=== PATIENT | male | born 1975 | race Caucasian/White ===

== ENCOUNTER 2021-09-20 15:02 | Inpatient (IN) | payer OTHER ==
[~2021-09-20] VITALS: Ht 185.4 cm; Wt 145.2 kg
[~2021-09-20 15:02] MED LIST: BENTYL10 MG PO; FLORANEX TABLE1 EACH PO; FLORASTOR250 MG PO; HABITROL14 MG TD; K-DUR20 MEQ PO; LASIX20 MG PO; LEVAQUIN750 MG PO; MUCINEX 600MG600 MG PO; PREDNISONE 20MG20 MG PO; VENTOLIN HFA IN18 GM INH; ZOFRAN8 MG PO
[2021-09-20 16:33] LABS: BASOPHIL 0.7 % (0-2); EOSINOPHIL 4.5 % (0-5); HGB 10.8 g/dl (13.2-18.0); LYMPHOCYTE 24.6 % (15-48); MCHC 31.8 g/dL (32.0-36.0); MCV 97.7 fL (78.0-100.0); MONOCYTE 11.3 % (0-12); MPV 10.9 fL (6.0-9.5); NEUTROPHIL 58.7 % (41-80); NRBC 0; PLT 109 K/uL (150-400); RBC 3.48 M/uL (4.70-6.00); RDW 17.6 % (11.5-14.0); WBC 5.6 K/uL (4.0-10.5)
[2021-09-20 16:50] LABS: ALBUMIN 2.9 g/dL (3.4-5.0); BILIRUBIN - TOTAL 0.6 mg/dL (0.2-1.0); BUN/CREAT RATIO (CALC) 15.7 RATIO; CREATININE 0.89 mg/dL (0.67-1.17); GLOBULIN (CALCULATION) 5.9 g/dL; POTASSIUM 4.1 mmol/L (3.5-5.1); TOTAL PROTEIN 8.8 g/dL (6.4-8.2)
[2021-09-20 17:06] LABS: BILIRUBIN NEGATIVE (NEGATIVE); BLOOD NEGATIVE Ery/uL (NEGATIVE); CLARITY CLEAR (CLEAR); COLOR YELLOW (YELLOW); GLUCOSE (U) NORMAL (NORMAL); LEUKOCYTES NEGATIVE Leu/uL (NEGATIVE); NITRITE NEGATIVE (NEGATIVE); PROTEIN NEGATIVE (NEGATIVE); UROBILINOGEN 0.2 mg/dL (0.2-1.0)
[2021-09-20 17:13] LABS: URINARY RBC RARE
[2021-09-20 17:14] LABS: SQUAMOUS EPITHELIAL CELLS RARE
[2021-09-20 20:15] LABS: CORONAVIRUS 2019 SARS-COV-2 NEGATIVE (NEGATIVE); INFLUENZA A NAA NEGATIVE (NEGATIVE)
--- NOTE | 2021-09-21 05:44 | NUR ---
NO HOME MEDS
[2021-09-21 06:33] LABS: BASOPHIL 0.7 % (0-2); EOSINOPHIL 4.3 % (0-5); HCT 33.7 % (42.0-52.0); HGB 10.8 g/dl (13.2-18.0); LYMPHOCYTE 27.9 % (15-48); MCV 96.8 fL (78.0-100.0); MONOCYTE 11.8 % (0-12); MPV 10.6 fL (6.0-9.5); NEUTROPHIL 54.9 % (41-80); NRBC 0; PLT 106 K/uL (150-400); RBC 3.48 M/uL (4.70-6.00); RDW 17.7 % (11.5-14.0); WBC 5.4 K/uL (4.0-10.5)
[2021-09-21 06:55] LABS: IRON % SATURATION 11.4 %SAT (20-50)
[2021-09-21 07:03] LABS: CKMB 2.3 ng/mL (0.0-3.6)
[2021-09-21 07:22] LABS: ALBUMIN 2.7 g/dL (3.4-5.0); BILIRUBIN - TOTAL 0.6 mg/dL (0.2-1.0); BUN/CREAT RATIO (CALC) 16.3 RATIO; CREATININE 0.98 mg/dL (0.67-1.17); FOLIC ACID (SERUM) 4.6 ng/mL (8.6-58.9); FT4 (FREE T4) 1.3 ng/dL (0.76-1.46); GLOBULIN (CALCULATION) 5.8 g/dL; MAGNESIUM 1.7 mg/dL (1.8-2.4); PHOSPHORUS 4.1 mg/dL (2.6-4.7); POTASSIUM 3.9 mmol/L (3.5-5.1); TOTAL PROTEIN 8.5 g/dL (6.4-8.2)
--- NOTE | 2021-09-21 15:13 | NUR ---
09/21/21 Pt is currently on Bi-PAP. A social and discharge planning assessment will be completed when patient is able to participate.
--- NOTE | 2021-09-21 15:15 | NUR ---
1100 NOTIFED RADHA GHANSHYAM THAT THE PATIENT IS VERY HARD TO AROUSE AND O2 SATS ARE LOW, REFUSED TO KEEP THE O2 IN PLACE. PATIENT WHEN AWAKE IS ABLE TO FOLLOW COMMANDS BUT FALLS BACK TO SLEEP AND IS SNORING. VITAL SIGNS ARE STABLE EXCEPT THE 02 SAT WHEN OFF THE OXYGEN. OXYGEN IS PLACED BACK ON THE PATIENT AT 3L NC. 1200 NEW ORDERS TO TRANSFER TO ICU AND TO BE PLACED ON THE BIPAP. 1250 REPORT WAS GIVEN TO WAYLON MEJIA RN 1300 TRNSFERRED OVER TO ICU VIA CHAIR WITH STAFF. CONDITION WAS STABLE BUT THE PATIENT IS VERY DROWSY AND DOES WAKE UP ONLY LONG ENOUGH TO FOLLOW SIMPLE COMMANDS BUT GOES RIGHT BACK TO SLEEP.
--- NOTE | 2021-09-21 18:31 | NUR ---
AFTER ARRIVAL TO ICU MYSELF, DR PENA, AND MARIA M REVELES, TRIED TO GET PATIENT TO WEAR BIPAP HE WOULD PUT ON HIS FACE THEN FIGHT WITH US AND RIP THE BIPAP MASK OFF. REFUSES TO WEAR, DR PENA AND MYSELF DISCUSSED THE IMPORTANCE OF THE BIPAP, BUT PT STILL REFUSED TO WEAR. "HE STATED WE JUST NEED TO TAKE CARE OF THE FLUID BUILD UP AND HE WOULD BE FINE" , I EXPAINED TO HIM THAT HIS CO2 LEVEL WAS INCREASEING AND THAT THIS TIME JUST GETTING THE FLUID OFF MIGHT NOT WORK.AND THAT IF HIS CO2 LEVELS CONTINUE TO RISE WE WOULD PROBABLY HAVE TO INTUBATE.
--- NOTE | 2021-09-21 22:27 | NUR ---
Patient stated that he wished to go outside to smoke. This RN spoke to bdc manager on duty regarding hospital policy. Application Counselor on duty stated that patient would have to have all monitoring removed and any IVs removed. This RN educated patient of this policy and educated patient that he could not smoke on the premises. This RN also educated that patient that he his illness made it extremely risk to leave the ICU/TCU, because he could lose consciousness and the staff would not know and would not be able to assist him if he left. Patient verbalized understanding. This RN contacted the ASSISTANT TODDLER TEACHER to obtain an order for a nicotine patch.
--- NOTE | 2021-09-22 03:03 | NUR ---
Patient continues to refuse bipap/cpap. Patient's SpO2 drops to low 70's when sleeping. When this happens the patient is difficult to arouse, and will strike out at the nurse. This nurse educated the patient that declining to wear the bipap/cpap could jeopardize his health and safety and could result in mechanical intubation or cardiac arrest. The patient verbalized understanding, but continues to decline bipap/cpap.
[2021-09-22 06:00] LABS: BASOPHIL 0.7 % (0-2); EOSINOPHIL 4.2 % (0-5); HCT 34.7 % (42.0-52.0); HGB 10.7 g/dl (13.2-18.0); LYMPHOCYTE 28.4 % (15-48); MCH 30.9 pg (25.0-31.0); MCHC 30.8 g/dL (32.0-36.0); MCV 100.3 fL (78.0-100.0); MONOCYTE 11.2 % (0-12); MPV 10.4 fL (6.0-9.5); NEUTROPHIL 55.3 % (41-80); NRBC 0; PLT 104 K/uL (150-400); RBC 3.46 M/uL (4.70-6.00); RDW 17.5 % (11.5-14.0); WBC 5.4 K/uL (4.0-10.5)
[2021-09-22 06:39] LABS: BUN/CREAT RATIO (CALC) 16.3 RATIO; CREATININE 1.04 mg/dL (0.67-1.17); MAGNESIUM 1.8 mg/dL (1.8-2.4); POTASSIUM 3.8 mmol/L (3.5-5.1)
--- NOTE | 2021-09-22 16:30 | NUR ---
09/23/21 Patient was sleeping with Bi-PAP on. Discharge plans are for him to be transferred to [facility] on 09/23. Patient's mother, Niesha Najera reports: Mr. Berry was living alone. He is unemployed and has been living off his savings. The savings are now depleted. Mr. Berry has been having difficulty with the Unemployment application because he does not have internet services and has not been successful appying over the telephone. - Mr. Berry has a PCP in [place], Dr. Cabrera. - A list of financial resources was provided to his mother. Recommendations were made for him to go to the Library to use the computer.
--- NOTE | 2021-09-22 18:58 | NUR ---
RIGHT AT SHIFT CHANGE, PT GOT AGITATED AND SAID HE WAS LEAVING. SAID HE HAD WAITED ON [facility] ALL DAY WITH NO ANSWERS. PT WAS LETHARGIC MOST OF THE DAY AND MISSED DOCTORS VISITS. PLAN OF CARE WAS DISCUSSED WITH PATIENT AND . RISK OF LEAVING WAS ALSO DISCUSSED. DR. PENA INFORMED OF PATIENT LEAVING. HE STATED HE WAS NOT GOING TO SEE PATIENT AGAIN. IV REMOVED. AMA PAPER SIGNED. PT TO LEAVE WITH VIA PRIVATE VEHICLE.
== END 2021-09-22 19:01 | disposition left against medical advice (07) | DRG 291 ==
LOC: FER 15:02 → FMS 18:48 → FICU 18:48
PROVIDERS: Internal Medicine; Nurse Practitioner; Physician Assistant; ADMIT Internal Medicine
DX: I11.0 Hypertensive heart disease with heart failure (principal); I50.21 Acute systolic (congestive) heart failure; J96.01 Acute respiratory failure with hypoxia; J96.02 Acute respiratory failure with hypercapnia; E66.2 Morbid (severe) obesity with alveolar hypoventilation; Z68.41 Body mass index [BMI] 40.0-44.9, adult; Z20.822 Contact with and (suspected) exposure to COVID-19; I50.82 Biventricular heart failure; D50.9 Iron deficiency anemia, unspecified; E53.8 Deficiency of other specified B group vitamins; J44.9 Chronic obstructive pulmonary disease, unspecified; F17.210 Nicotine dependence, cigarettes, uncomplicated; Z88.0 Allergy status to penicillin; Z98.890 Other specified postprocedural states; Z28.310 Unvaccinated for COVID-19
CPT/HCPCS: 36415; 36600; 71045; 80048; 80053; 80061; 81001; 82553; 82607; 82728; 82746; 82803; 83036; 83540; 83550; 83735; 83880; 84100; 84439; 84443; 84484; 85025; 93005; 94010; 94640; 94660; 94760; J1650; J1940; J3475; U0002